=== PATIENT | male | born 1965 | race Hispanic/Latino ===

== ENCOUNTER → 2022-03-15 | Outpatient (CLI) | payer OTHER | END | disposition home or self-care (01) | LOC: RAH 10:00 | PROVIDERS: ATTEND Family Medicine | DX: M48.061 Spinal stenosis, lumbar region without neurogenic claudication (principal); M51.36 Other intervertebral disc degeneration, lumbar region; M19.012 Primary osteoarthritis, left shoulder; M54.50 Low back pain, unspecified; M25.512 Pain in left shoulder | CPT/HCPCS: 72148; 73221 ==

== ENCOUNTER → 2022-05-12 | Outpatient (CLI) | payer OTHER | END | disposition home or self-care (01) | LOC: RAH 12:17 | PROVIDERS: ATTEND Internal Medicine | DX: S24.109A Unspecified injury at unspecified level of thoracic spinal cord, initial encounter (principal); M47.816 Spondylosis without myelopathy or radiculopathy, lumbar region; X58.XXXA Exposure to other specified factors, initial encounter; Y93.89 Activity, other specified; Y92.89 Other specified places as the place of occurrence of the external cause; Y99.8 Other external cause status | CPT/HCPCS: 72070; 72100 ==

== ENCOUNTER → 2025-07-29 | Outpatient (CLI) | payer OTHER ==
--- NOTE | 2025-07-30 06:31 | HMCIMG ---
EXAM: CT Cardiac calcium scoring. CLINICAL HISTORY: Screening. TECHNIQUE: Thin collimated axial CT cardiac images were obtained. A CT scan is done according to ALARA (As Low As Reasonably Achievable). CONTRAST: None. COMPARISON: None provided. FINDINGS: Calcium Score: VESSEL Number of lesions Volume mm3 Equi. Mass/mg Calcium score LM 0 0.0 - 0.0 LAD 1 13.8 - 12.2 LCX 0 0.0 - 0.0 RCA 0 0.0 - 0.0 Total 1 13.8 - 12.2 IMPRESSION: The total calcium score is 12.2. 46th percentile. /[place]
== END | disposition home or self-care (01) ==
LOC: RAH 12:54
DX: Z13.6 Encounter for screening for cardiovascular disorders (principal); R53.83 Other fatigue; G47.00 Insomnia, unspecified; R68.82 Decreased libido; M25.50 Pain in unspecified joint
CPT/HCPCS: 75571